=== PATIENT | male | born 1970 | race Hispanic/Latino ===

== ENCOUNTER 2019-01-01 15:46 | Emergency (ER) | payer MEDICARE, OTHER ==
[~2019-01-01] VITALS: Ht 172.7 cm; Wt 93.7 kg
--- OUTSIDE RECORDS SUMMARY | 2019-01-01 15:49 | XMS REPORT ---
Author Author [facility] Address Unknown Phone Unavailable Care Team Providers Care Graphic Manager Name Role Phone Unavailable Unavailable Payers Payer Name Policy Type Policy Number Effective Date Expiration Date Problems This patient has no known problems. Allergies, Adverse Reactions, Alerts Allergy Name Allergy Type Status Severity Reaction(s) Onset Date Inactive Date Treating Clinician Comments No Known Allergies DA Active U 2018-08-04 00:00:00 No Known Allergies DA Active U 2017-11-22 00:00:00 Medications This patient has no known medications. Results Test Description Test Time Test Comments Text Results Atomic Results Result Comments STREPTOCOCCUS PCR SCREEN 2018-12-26 06:21:00 STREPTOCOCCUS DYSGALACTIAE (test code=STREPGC) NEGATIVE FOR G/C NEGATIVE STREPA MOLECULAR (test code=STREPAMOL) NEGATIVE FOR GRP A NEGATIVE BASIC METABOLIC [id number] 20:14:00* Test Item Value Reference Range Comments SODIUM (test code=NA) 137 mmol/L 136-145 POTASSIUM (test code=K) 3.9 mmol/L 3.5-5.1 CHLORIDE (test code=CL) 101 mmol/L 101-109 CARBON DIOXIDE (test code=CO2) 28.1 mmol/L 21-32 ANION GAP (test code=GAP) 12 mmol/L 10-20 GLUCOSE (test code=GLU) 93 mg/dL 74-106 BLOOD UREA NITROGEN (test code=BUN) 10 mg/dL 3-21 GLOMERULAR FILTRATION RATE (test code=GFR) > 60 mL/min >=60 Estimated GFR by using Modified MDRD formula.Chronic kidney disease is defined as either kidney damageor GFR <60 mL/min/1.73 m2 for >3 months. CREATININE (test code=CREAT) 1.08 mg/dL 0.55-1.3 BUN/CREATININE RATIO (test code=BUN/CREA) 9.3 10-20 CALCIUM (test code=CA) 8.7 mg/dL 8.4-10.2 [id number] 20:14:00* Test Item Value Reference Range Comments TROPONIN-I (test code=TROPI) <0.015 ng/mL 0.00-0.056 [id number] 20:10:00* Test Item Value Reference Range Comments D-DIMER (test code=DDIMER) < 100 ng/ml < 600 B-TYPE NATRIURETIC [id number] 20:10:00* Test Item Value Reference Range Comments B-TYPE NATRIURETIC PEPTIDE (test code=BNP) < 5.0 pg/mL 0-100 - XR CHEST 2 [id number] 20:09:00 Name: ALEX RECINOS [facility] : 1970 Age/S:48 /M [address] [facility] Unit#:[id number] [place]: [place] [address] Phys: Sunita Figueroa MD Dis Date: PHONE #: [phone] Status: REG ER FAX #: [phone] Exam Date: 12/25/2018 Reason: COUGH,PLEURITIC PAIN EXAMS: CPT CODE: [id number] XR CHEST 2 V 05071 REASON FOR EXAM: COUGH,PLEURITIC PAIN Exam Order Date: 12/25/2018 7:26 PM Ordering: Sunita Figueroa MD Attending:Sunita Figueroa MD Location: PROCEDURE: - XR CHEST 2 V COMPARISON: FINDINGS: PA and lateral views of the chest show clear lungs without evidence of consolidation. No evidence of effusion. The heart size is within normal limits. Pulmonary vasculatures are unremarkable. The osseous structures are grossly intact. IMPRESSION: No active disease. at 2009 Reported and signed by: Roger Cummings M.D. CC: Technologist: COURTNEY GIBSON RT(R),RDMS,CT Trnscrpt Data: 12/25/2018 (2008) [email or web address] Orig Print D/T: S: 12/25/2018 (2011) PAGE 1 Signed Report BASIC METABOLIC PANEL 2018-12-25 20:05:00* Test Item Value Reference Range Comments SODIUM (test code=NA) 137 mmol/L 136-145 POTASSIUM (test code=K) 3.9 mmol/L 3.5-5.1 CHLORIDE (test code=CL) 101 mmol/L 101-109 CARBON DIOXIDE (test code=CO2) 28.1 mmol/L 21-32 ANION GAP (test code=GAP) 12 mmol/L 10-20 GLUCOSE (test code=GLU) 93 mg/dL 74-106 BLOOD UREA NITROGEN (test code=BUN) 10 mg/dL 3-21 GLOMERULAR FILTRATION RATE (test code=GFR) > 60 mL/min >=60 Estimated GFR by using Modified MDRD formula.Chronic kidney disease is defined as either kidney damageor GFR <60 mL/min/1.73 m2 for >3 months. CREATININE (test code=CREAT) 1.08 mg/dL 0.55-1.3 BUN/CREATININE RATIO (test code=BUN/CREA) 9.3 10-20 CALCIUM (test code=CA) 8.7 mg/dL 8.4-10.2 [id number] 20:05:00* Test Item Value Reference Range Comments TROPONIN-I (test code=TROPI) ng/mL 0-0.045 CBC W/O [id number] 19:59:00* Test Item Value Reference Range Comments WHITE BLOOD CELL (test code=WBC) 12.3 K/mm3 4.5-12.5 RED BLOOD CELL (test code=RBC) 5.63 mill/mm3 4.0-5.8 HEMOGLOBIN (test code=HGB) 15.9 gram/dL 13.0-17.5 HEMATOCRIT (test code=HCT) 48.3 % 42.0-52.0 MEAN CELL VOLUME (test code=MCV) 85.8 fL 80-98 MEAN CELL HGB (test code=MCH) 28.2 picogram 27.0-33.0 MEAN CELL HGB CONCETRATION (test code=MCHC) 32.9 gram/dL 33.0-36.0 RED CELL DISTRIBUTION WIDTH (test code=RDW) 14.0 % 11.6-16.2 RED CELL DISTRIBUTION WIDTH SD (test code=RDW-SD) 44.2 fL 37.0-51.0 PLATELET COUNT (test code=PLT) 330 K/mm3 150-450 MEAN PLATELET VOLUME (test code=MPV) 9.8 fL 6.7-11.0 - DUP VEIN UNI/[id number] 08:20:00 Patient Name: ALEX RECINOS Unit No: [id number] EXAMS: CPT CODE: [id number] DUP VEIN UNI/LTD 74860 RIGHT LOWER EXTREMITY VENOUS DOPPLER DIAGNOSIS: Comparison is made with previous examination of August 26, 2018. On the current examination the common femoral vein may be slightly smaller. A collateral vessel at the level of the distal femoral vein extending into the popliteal vein is present on the current study which was not present previously. There is flow in the posterior tibial vein to the ankle. Slight flow is seen in the peroneal vein. These findings are consistent with chronic deep venous thrombosis which is evolving without evidence for superimposed acute thrombus. COMMENT: Multiple real- time and color Doppler images were obtained. Extensive chronic deep venous thrombosis is noted with minor changes since the prior exam as described above. at 0820 Reported and signed by: Fernandez Briones MD CC: Acosta Stratton MD Technologist: Cristina Thacker RT(R),(CT),RVT Transcribed D/ (0820) [email or web address] [facility] NAME: ALEX RECINOS [address] [facility] PHYS: BRIMA.01 - Acosta Stratton MD : 1970 AGE: 48 SEX: M [place], [place] [address] LOC: Y.RAD PHONE #: [phone] EXAM DATE: 09/30/2018 STATUS: DEP CLI FAX #: [phone] RAD #: D/C DT PAGE 1 Signed Report Patient Name: ALEX RECINOS Unit No: [id number] EXAMS: CPT CODE: [id number] DUP VEIN UNI/LTD 22190 <Continued> Orig Print D/T: S: 10/01/2018 (0823) [facility] NAME: ALEX RECINOS [address] [facility] PHYS: BRIMA. - Acosta Stratton MD : 1970 AGE: 48 SEX: M [place] [address] LOC: Y.RAD PHONE #: [phone] EXAM DATE: 09/30/2018 STATUS: DEP CLI FAX #: [phone] RAD #: D/C DT PAGE 2 Signed Report - DUP VEIN UNI/[id number] 06:59:00 Patient Name: ALEX RECINOS Unit No: [id number] EXAMS: CPT CODE: [id number] DUP VEIN UNI/LTD 30020 RIGHT LOWER EXTREMITY VENOUS DOPPLER DIAGNOSIS: There is chronic appearing nearly occlusive thrombus extending from the common superficial femoral vein contiguously to the peroneal vein in the mid calf. The posterior tibial and profunda femoris veins are patent. The thrombus is echogenic. No collateral vessels are seen. COMMENT: COMP ARISON: No prior exams available. Multiple real-time, color and du plex Doppler images were obtained. Extensive deep venous thrombosi s is present as described. These findings were reported to Dr. Chayito Doty at 5:15 PM. at 0659 Reported and signed by: Fernandez Briones MD CC: Acosta Stratton MD Te chnologist: MATI TOSCANO RDMS, RVT Transcribed D/ (0659) Althea [facility] NAME: ALEX RECINOS [address] [facility] PHYS: BRIMA. - Acosta Stratton MD : 1970 AGE: 47 SEX: Bog[place], [place] [address] LOC: Y.RAD PHONE #: [phone] EXAM DATE: 08/26/2018 STATUS: DEP CLI FAX #: [phone] RAD #: D/C DT PAGE 1 Signed Report Patient Name: ALEX RECINOS Unit No: [id number] EXAMS: CPT CODE: [id number] DUP VEIN UNI/LTD 44894 <Continued> Orig Print D/T: S: 08/27/2018 (0702) [facility] NAME: ALEX RECINOS [address] [facility] PHYS: Acosta Murphy MD : 1970 AGE: 47 SEX: M [place], [place] [address] LOC: YHankRAD PHONE #: [phone] EXAM DATE: 08/26/2018 STATUS: DEP CLI FAX #: [phone] RAD #: D/C DT PAGE 2 Signed Report BASIC METABOLIC [id number] 06:44:00* Test Item Value Reference Range Comments SODIUM (test code=NA) 138 mmol/L 136-145 POTASSIUM (test code=K) 4.5 mmol/L 3.5-5.1 CHLORIDE (test code=CL) 101.0 mmol/L 98-107 CARBON DIOXIDE (test code=CO2) 27.2 mmol/L 21-32 GLUCOSE (test code=GLU) 106 mg/dL 70-110 BLOOD UREA NITROGEN (test code=BUN) 12 mg/dL 7-18 GLOMERULAR FILTRATION RATE (test code=GFR) 84.6 >60 Unit of measure: mL/min/1.73 [id number] Range:Healthy Adults >90 mL/min/1.73 m2 For Chronic Kidney Disease: Stage II Mild Decrease in GFR 60-90 Stage III Moderate Decrease in GFR 30-59 Stage IV Severe Decrease in GFR 15-29 Stage V Kidney Failure <15 CREATININE (test code=CREAT) 0.95 mg/dL 0.55-1.30 CALCIUM (test code=CA) 8.3 mg/dL 8.2-10.1 CBC W/AUTO [id number] 05:44:00* Test Item Value Reference Range Comments WHITE BLOOD CELL (test code=WBC) 13.6 K/mm3 5.7-10.5 RED BLOOD CELL (test code=RBC) 4.60 M/mm3 4.2-5.4 HEMOGLOBIN (test code=HGB) 13.6 g/dL 12-16 HEMATOCRIT (test code=HCT) 39.8 % 37-47 MEAN CELL VOLUME (test code=MCV) 87 fL 80-98 MEAN CELL HGB (test code=MCH) 29.6 pg 27-34 MEAN CELL HGB CONCENTRATION (test code=MCHC) 34.2 g/dL 30.8-34.1 RED CELL DISTRIBUTION WIDTH (test code=RDW) 13.9 % 11-16 PLT (test code=PLT) 300 K/mm3 130-400 MEAN PLATELET VOLUME (test code=MPV) 10.2 fL 8.9-12.1 NEUTROPHIL % (test code=NT%) 67.9 % 45-70 LYMPHOCYTE % (test code=LY%) 17.8 % 20-40 MONOCYTE % (test code=MO%) 11.0 % 3-10 EOSINOPHIL % (test code=EO%) 1.6 % 1-5 BASOPHIL % (test code=BA%) 0.3 % 0.0-1.1 NEUTROPHIL # (test code=NT#) 9.26 K/mm3 2.00-7.50 LYMPHOCYTE # (test code=LY#) 2.42 K/mm3 1.50-4.00 MONOCYTE # (test code=MO#) 1.50 K/mm3 0.2-0.8 EOSINOPHIL # (test code=EO#) 0.22 K/mm3 0.04-0.4 BASOPHIL # (test code=BA#) 0.04 K/mm3 0.02-0.10 MANUAL DIFF REQUIRED (test code=MDIFF) NO MANUAL DIFF NUCLEATED RED BLOOD CELL (test code=NRBC) 0 % 0-0 - CT LOWER EXTRM W/O C [id number] 12:03:00 Patient Name: ALEX RECINOS Unit No: [id number] EXAMS: CPT CODE: [id number] [place] L[place] EXTRM W/[place] [address] [place] SCAN RIGHT KNEE WITH RECONSTRUCTION DIAGNOSIS: 1. There is a comminuted fracture of the tibial plateau. This predominantly involves the lateral tibial plateau. There is no significant depression. Fracture line extends into the medial and lateral tibial spine. Fracture also extends into the proximal tibiofibular joint. There is a comminuted moderately displaced fracture of the fibular head. The medial plateau intact. COMMENT: 0.63 mm axial slices obtained of the right knee with reconstruction. Findings are as described above. at 1203 Reported and signed by: Adam Saavedra MD CC: Acosta Stratton MD Technologist: Garrett Meng,RT(R) CTDI: DLP: Trnscrpt: 07/30/2018 (4211) [id number] [facility] NAME: ALEX RECINOS [address] [facility] PHYS: DOMINIQUE - Acosta Stratton MD : 1970 AGE: 47 SEX: M [place] [address] LOC: Y.RAD PHONE #: [phone] EXAM DATE: 07/29/2018 STATUS: DEP CLI FAX #: [phone] RAD #: D/C DT PAGE 1 Signed Report Patient Name: ALEX RECINOS Unit No: [id number] EXAMS: CPT CODE: [id number] [place] L[place] EXTRM W/[place] [address] <Continued> Orig Print D/T: S: 07/30/2018 (8048) [facility] NAME: ALEX RECINOS [address] [facility] PHYS: HENRIMESHA. - Acosta Stratton MD : 1970 AGE: 47 SEX: M [place] [address] LOC: Y.RAD PHONE #: [phone] EXAM DATE: 07/29/2018 STATUS: DEP CLI FAX #: [phone] RAD #: D/C DT PAGE 2 Signed Report C REACTIVE PROTEIN 2018-07-29 16:46:00* Test Item Value Reference Range Comments C REACTIVE PROTEIN (test code=CRP) 4.9 mg/dL <0.9 ACUTE HEPATITIS [id number] 16:46:00* Test Item Value Reference Range Comments AB HEPATITIS A IGM (test code=HAVMAB) NONREACTIVE NONREACTIVE AG HEPATITIS B SURFACE (test code=HBSAG) NONREACTIVE NONREACTIVE AB HEPATITIS B CORE IGM (test code=HBCMAB) NONREACTIVE NONREACTIVE AB HEPATITIS C (test code=HCVAB) NONREACTIVE NONREACTIVE SIGNAL TO CUTOFF (test code=CUTOFF) 0.17 <0.80 AB HIV 16:46:00* Test Item Value Reference Range Comments AB HIV 1 (test code=HIV1AB) NONREACTIVE NONREACTIVE Done by [employer] 4[employer] Gen HIV Ag/Ab Combo Screen ACUTE HEPATITIS [id number] 16:45:00* Test Item Value Reference Range Comments AB HEPATITIS A IGM (test code=HAVMAB) NONREACTIVE NONREACTIVE AG HEPATITIS B SURFACE (test code=HBSAG) NONREACTIVE NONREACTIVE AB HEPATITIS B CORE IGM (test code=HBCMAB) NONREACTIVE NONREACTIVE AB HEPATITIS C (test code=HCVAB) NONREACTIVE NONREACTIVE SIGNAL TO CUTOFF (test code=CUTOFF) 0.17 <0.80 AB HIV 1 16:45:00* Test Item Value Reference Range Comments AB HIV 1 2 (test code=GPV20KH) NONREACTIVE NONREACTIVE Done by [employer] 4th Gen HIV Ag/Ab Combo Screen C REACTIVE [id number] 15:49:00* Test Item Value Reference Range Comments C REACTIVE PROTEIN (test code=CRP) 4.9 mg/dL <0.9 ACUTE HEPATITIS [id number] 15:49:00* Test Item Value Reference Range Comments AB HEPATITIS A IGM (test code=HAVMAB) NONREACTIVE AG HEPATITIS B SURFACE (test code=HBSAG) NONREACTIVE NONREACTIVE AB HEPATITIS B CORE IGM (test code=HBCMAB) AB HEPATITIS C (test code=HCVAB) NONREACTIVE SIGNAL TO CUTOFF (test code=CUTOFF) AB HIV 15:49:00* Test Item Value Reference Range Comments AB HIV 1 (test code=HIV1AB) NONREACTIVE ACUTE HEPATITIS [id number] 15:48:00* Test Item Value Reference Range Comments AB HEPATITIS A IGM (test code=HAVMAB) NONREACTIVE AG HEPATITIS B SURFACE (test code=HBSAG) NONREACTIVE NONREACTIVE AB HEPATITIS B CORE IGM (test code=HBCMAB) NONREACTIVE AB HEPATITIS C (test code=HCVAB) NONREACTIVE SIGNAL TO CUTOFF (test code=CUTOFF) <0.80 AB HIV 1 15:48:00* Test Item Value Reference Range Comments AB HIV 1 2 (test code=NVS75KT) NONREACTIVE CBC W/AUTO [id number] 14:12:00* Test Item Value Reference Range Comments WHITE BLOOD CELL (test code=WBC) 12.9 K/mm3 5.7-10.5 RED BLOOD CELL (test code=RBC) 5.48 M/mm3 4.2-5.4 HEMOGLOBIN (test code=HGB) 15.8 g/dL 12-16 HEMATOCRIT (test code=HCT) 46.6 % 37-47 MEAN CELL VOLUME (test code=MCV) 85 fL 80-98 MEAN CELL HGB (test code=MCH) 28.8 pg 27-34 MEAN CELL HGB CONCENTRATION (test code=MCHC) 33.9 g/dL 30.8-34.1 RED CELL DISTRIBUTION WIDTH (test code=RDW) 13.9 % 11-16 PLT (test code=PLT) 250 K/mm3 130-400 MEAN PLATELET VOLUME (test code=MPV) 10.6 fL 8.9-12.1 NEUTROPHIL % (test code=NT%) 67.8 % 45-70 LYMPHOCYTE % (test code=LY%) 21.0 % 20-40 MONOCYTE % (test code=MO%) 8.7 % 3-10 EOSINOPHIL % (test code=EO%) 1.7 % 1-5 BASOPHIL % (test code=BA%) 0.5 % 0.0-1.1 NEUTROPHIL # (test code=NT#) 8.76 K/mm3 2.00-7.50 LYMPHOCYTE # (test code=LY#) 2.71 K/mm3 1.50-4.00 MONOCYTE # (test code=MO#) 1.13 K/mm3 0.2-0.8 EOSINOPHIL # (test code=EO#) 0.22 K/mm3 0.04-0.4 BASOPHIL # (test code=BA#) 0.06 K/mm3 0.02-0.10 MANUAL DIFF REQUIRED (test code=MDIFF) NO MANUAL DIFF NUCLEATED RED BLOOD CELL (test code=NRBC) 0 % 0-0 SED [id number] 14:12:00* Test Item Value Reference Range Comments SED RATE (test code=SEDW) 11 mm/hr 0-15 COMPREHENSIVE METABOLIC [id number] 13:36:00* Test Item Value Reference Range Comments SODIUM (test code=NA) 137 mmol/L 136-145 POTASSIUM (test code=K) 3.7 mmol/L 3.5-5.1 CHLORIDE (test code=CL) 99.0 mmol/L 98-107 CARBON DIOXIDE (test code=CO2) 28.2 mmol/L 21-32 GLUCOSE (test code=GLU) 96 mg/dL 70-110 BLOOD UREA NITROGEN (test code=BUN) 15 mg/dL 7-18 GLOMERULAR FILTRATION RATE (test code=GFR) 62.2 >60 Unit of measure: mL/min/1.73 [id number] Range:Healthy Adults >90 mL/min/1.73 m2 For Chronic Kidney Disease: Stage II Mild Decrease in GFR 60-90 Stage III Moderate Decrease in GFR 30-59 Stage IV Severe Decrease in GFR 15-29 Stage V Kidney Failure <15 CREATININE (test code=CREAT) 1.24 mg/dL 0.55-1.30 TOTAL PROTEIN (test code=PROT) 7.4 g/dL 6.4-8.2 ALBUMIN (test code=ALB) 3.6 g/dL 3.4-5.0 GLOBULIN (test code=GLOB) 3.8 g/dL 2.2-4.2 ALBUMIN/GLOBULIN RATIO (test code=A/G) 1.0 0.7-2.0 CALCIUM (test code=CA) 9.0 mg/dL 8.2-10.1 BILIRUBIN TOTAL (test code=BILT) 1.15 mg/dL 0.2-1.00 SGOT/AST (test code=AST) 22.0 U/L 15-37 SGPT/ALT (test code=ALT) 41.0 U/L 12-78 Please note new normal range. ALKALINE PHOSPHATASE TOTAL (test code=ALKP) 87 U/L 46-116 C REACTIVE [id number] 13:25:00* Test Item Value Reference Range Comments C REACTIVE PROTEIN (test code=CRP) 4.9 mg/dL <0.9 ACUTE HEPATITIS [id number] 13:25:00* Test Item Value Reference Range Comments AB HEPATITIS A IGM (test code=HAVMAB) NONREACTIVE AG HEPATITIS B SURFACE (test code=HBSAG) NONREACTIVE AB HEPATITIS B CORE IGM (test code=HBCMAB) AB HEPATITIS C (test code=HCVAB) NONREACTIVE SIGNAL TO CUTOFF (test code=CUTOFF) AB HIV 13:25:00* Test Item Value Reference Range Comments AB HIV 1 (test code=HIV1AB) NONREACTIVE PROTHROMBIN [id number] 13:24:00* Test Item Value Reference Range Comments PROTHROMBIN TIME PATIENT (test code=PTP) 13.4 secs 10.1-12.5 INTERNATIONAL NORMAL RATIO (test code=INR) 1.19 <2.0 RECOMMENDED THERAPEUTIC RANGE FOR ORAL ANTICOAGULANTTREATMENT: CONDITION INRProphylaxis of venous thrombosis in 2.0 - 3.0 high-risk medical or surgical patientsTreatment of venous thrombosis 2.0 - 3.0Prevention of embolism 2.0 - 3.0Prevention of recurrent embolism, or 3.0 - 4.5 patients with mechanical prosthetic intravascular valves IS PATIENT ON ANTICOAGULANTS ? [facility] been notified if Patient is on Heparin D rip? NOTHROMBOPLASTIN TIME [id number] 13:24:00* Test Item Value Reference Range Comments PTT ACTIVATED (test code=APTT) 29.4 secs 24.9-37.0 IS PATIENT ON ANTICOAGULANTS ? [facility] been notified if Patient is on Heparin D rip? NOCBC W/AUTO [id number] 13:09:00* Test Item Value Reference Range Comments WHITE BLOOD CELL (test code=WBC) 12.9 K/mm3 5.7-10.5 RED BLOOD CELL (test code=RBC) 5.48 M/mm3 4.2-5.4 HEMOGLOBIN (test code=HGB) 15.8 g/dL 12-16 HEMATOCRIT (test code=HCT) 46.6 % 37-47 MEAN CELL VOLUME (test code=MCV) 85 fL 80-98 MEAN CELL HGB (test code=MCH) 28.8 pg 27-34 MEAN CELL HGB CONCENTRATION (test code=MCHC) 33.9 g/dL 30.8-34.1 RED CELL DISTRIBUTION WIDTH (test code=RDW) 13.9 % 11-16 PLT (test code=PLT) 250 K/mm3 130-400 MEAN PLATELET VOLUME (test code=MPV) 10.6 fL 8.9-12.1 NEUTROPHIL % (test code=NT%) 67.8 % 45-70 LYMPHOCYTE % (test code=LY%) 21.0 % 20-40 MONOCYTE % (test code=MO%) 8.7 % 3-10 EOSINOPHIL % (test code=EO%) 1.7 % 1-5 BASOPHIL % (test code=BA%) 0.5 % 0.0-1.1 NEUTROPHIL # (test code=NT#) 8.76 K/mm3 2.00-7.50 LYMPHOCYTE # (test code=LY#) 2.71 K/mm3 1.50-4.00 MONOCYTE # (test code=MO#) 1.13 K/mm3 0.2-0.8 EOSINOPHIL # (test code=EO#) 0.22 K/mm3 0.04-0.4 BASOPHIL # (test code=BA#) 0.06 K/mm3 0.02-0.10 MANUAL DIFF REQUIRED (test code=MDIFF) NO MANUAL DIFF NUCLEATED RED BLOOD CELL (test code=NRBC) 0 % 0-0 SED [id number] 13:09:00* Test Item Value Reference Range Comments SED RATE (test code=SEDW) mm/hr 0-15 URINALYSIS [id number] 15:43:00* Test Item Value Reference Range Comments UA COLOR (test code=COLU) LIGHT YELLOW YELLOW UA APPEARANCE (test code=APPU) CLEAR CLEAR UA GLUCOSE DIPSTICK (test code=DGLUU) norm mg/dL NEGATIVE UA BILIRUBIN DIPSTICK (test code=BILU) NEGATIVE mg/dL NEGATIVE UA KETONE DIPSTICK (test code=KETU) neg mg/dL NEGATIVE UA SPECIFIC GRAVITY (test code=SGU) 1.015 1.001-1.035 UA BLOOD DIPSTICK (test code=FRANCES) 10 (Trace) Nhan/uL NEGATIVE UA PH DIPSTICK (test code=HECTOR) 6.0 5.0-8.0 UA PROTEIN DIPSTICK (test code=PROU) 15 (TRACE) mg/dL Neg-15 UA UROBILINIOGEN DIPSTICK (test code=URO) 4 mg/dL (2+) mg/dL 0.0-0.2 UA NITRITE DIPSTICK (test code=CECILY) NEGATIVE NEGATIVE UA LEUKOCYTE ESTERASE DIPSTICK (test code=LEUU) 25 (Trace) uL NEGATIVE UA WBC (test code=WBCU) 0-5 per HPF 0-5 IN SOME URINARY TRACT INFECTIONS THERE MAY NOT BE ENOUGHWBCs IN THE URINE TO TRIGGER AN AUTOMATIC (REFLEX) URINECULTURE. A SEPERATE ORDER FOR URINE CULTURE IS RECOMMENDEDIF THERE IS STRONG SUPPORT FOR A URINARY TRACT INFECTIONCLINICALLY. UA RBC (test code=RBCU) 0-3 per HPF 0-5 UA EPITHELIAL CELLS (test code=EPIU) Rare (0-1/hpf) per HPF Few UA BACTERIA (test code=BACU) TRACE per HPF NONE UA MUCUS (test code=MUCU) MODERATE per LPF NONE-FEW Urine Source? Clean CatchURINALYSIS [id number] 15:38:00* Test Item Value Reference Range Comments UA COLOR (test code=COLU) LIGHT YELLOW YELLOW UA APPEARANCE (test code=APPU) CLEAR CLEAR UA GLUCOSE DIPSTICK (test code=DGLUU) norm mg/dL NEGATIVE UA BILIRUBIN DIPSTICK (test code=BILU) NEGATIVE mg/dL NEGATIVE UA KETONE DIPSTICK (test code=KETU) neg mg/dL NEGATIVE UA SPECIFIC GRAVITY (test code=SGU) 1.015 1.001-1.035 UA BLOOD DIPSTICK (test code=FRANCES) 10 (Trace) Nhan/uL NEGATIVE UA PH DIPSTICK (test code=HECTOR) 6.0 5.0-8.0 UA PROTEIN DIPSTICK (test code=PROU) 15 (TRACE) mg/dL Neg-15 UA UROBILINIOGEN DIPSTICK (test code=URO) 4 mg/dL (2+) mg/dL 0.0-0.2 UA NITRITE DIPSTICK (test code=CECILY) NEGATIVE NEGATIVE UA LEUKOCYTE ESTERASE DIPSTICK (test code=LEUU) 25 (Trace) uL NEGATIVE UA WBC (test code=WBCU) per HPF 0-5 Urine Source? Clean Catch
[2019-01-01] MEDS ORDERED: ALBUTEROL SULF 0.083% NEB SOLN 3 ML NEB NEB STA (15:57)
[2019-01-01] MEDS ORDERED: IPRATROPIUM BROMIDE 0.02% 2.5 ML NEB NEB STA (15:57)
[2019-01-01] MEDS ORDERED: DEXAMETHASONE SOD PHOS 10 MG/1 ML VIAL IM ONE (16:00)
[2019-01-01 16:50] LABS: BASOPHILS % 0.3 % (0.0-1.0); EOSINOPHILS # (AUTO) 0.2 (0.0-0.4); EOSINOPHILS % 1.6 % (0.0-6.0); HEMATOCRIT 47.4 % (38.2-49.6); HEMOGLOBIN 16.4 g/dL (14.0-18.0); LYMPHOCYTES # (AUTO) 1.5 (1.0-3.2); LYMPHOCYTES % 13.2 % (18.0-39.1); MEAN CORPUSCULAR HEMOGLOBIN 29.6 pg (28-32); MEAN CORPUSCULAR HGB CONC 34.6 g/dL (31-35); MEAN CORPUSCULAR VOLUME 85.6 fL (81-99); MONOCYTES # (AUTO) 0.7 (0.2-0.8); MONOCYTES % 5.6 % (4.4-11.3); NEUTROPHILS # (AUTO) 9.2 (2.1-6.9); PLATELET COUNT 304 x10e3/uL (140-360); RED BLOOD COUNT 5.54 x10e6/uL (4.3-5.7); RED CELL DISTRIBUTION WIDTH 14.3 % (11.7-14.4)
[2019-01-01 16:59] LABS: STREPTOCOCCUS GRP A ANTIGEN NEGATIVE (NEGATIVE)
[2019-01-01] MEDS ORDERED: ACETAMINOPHEN/CODEINE ELIX 120-12 MG/5 ML UDC PO ONE (17:00)
--- NOTE | 2019-01-01 17:11 | Diagnostic Imaging Report ---
EXAMINATION: CHEST 2 VIEWS INDICATION: Flulike symptoms, shortness of breath, chest pain COMPARISON: None FINDINGS: LINES/TUBES:None LUNGS:The lungs are well-inflated. No focal consolidation or pulmonary edema. PLEURA:No pleural effusion or pneumothorax. MEDIASTINUM:The cardiomediastinal silhouette appears normal in size and shape. BONES/SOFT TISSUES:No acute osseous injury. ABDOMEN:No free air under the diaphragm. Status post cholecystectomy. IMPRESSION: No focal pneumonia or pulmonary edema. Signed by: Maryam Keys MD on 01/01/2019 5:08 PM
[2019-01-01 17:19] LABS: INFLUENZAE A&B ANTIGEN (RAPID) NEGATIVE (NEGATIVE)
[2019-01-01 17:28] LABS: ALANINE AMINOTRANSFERASE 32 IU/L (0-55); ALBUMIN 3.8 g/dL (3.5-5.0); ALKALINE PHOSPHATASE 108 IU/L (40-150); ANION GAP 11.1 mmol/L (8-16); BLOOD UREA NITROGEN 7 mg/dL (7-26); BUN/CREATININE RATIO 7 (6-25); CALCIUM 9.3 mg/dL (8.4-10.2); CARBON DIOXIDE 24 mmol/L (22-29); CHLORIDE 103 mmol/L (98-107); CREATININE, SERUM 1.03 mg/dL (0.72-1.25); EST GLOMERULAR FILTRATION RATE > 60 ML/MIN (60-); GLUCOSE 107 mg/dL (74-118); POTASSIUM 4.1 mmol/L (3.5-5.1); SODIUM 134 mmol/L (136-145)
[2019-01-01 18:20] VITALS: BP 137/80
[2019-01-01 21:04] LABS: LYMPHOCYTES % (MANUAL) 13 % (19-48); MONOCYTES % (MANUAL) 5 % (3.4-9.0); NEUTROPHILS % (MANUAL) 79 % (40-74); PLATELET ESTIMATE ADEQUATE; PLATELET MORPHOLOGY COMMENT NORMAL; RBC MORPHOLOGY COMMENT NORMAL
== END 2019-01-01 18:22 | disposition home or self-care (01) ==
LOC: ER 15:46
DX: R05 Cough (principal); J20.9 Acute bronchitis, unspecified
CPT/HCPCS: 36415; 71046; 80053; 83518; 84484; 85025; 87070; 87400; 93005; 94640; 99284; J1100

== ENCOUNTER 2019-04-18 18:40 | Emergency (ER) | payer MEDICARE, OTHER ==
[~2019-04-18] VITALS: Ht 172.7 cm; Wt 93.4 kg
[2019-04-18] MEDS ORDERED: CLONIDINE HCL 0.1 MG TAB PO NR (19:15)
[2019-04-18 19:45] VITALS: BP 151/96
== END 2019-04-18 19:46 | disposition home or self-care (01) ==
LOC: ER 18:40
DX: Z76.0 Encounter for issue of repeat prescription (principal); I10 Essential (primary) hypertension; Z86.718 Personal history of other venous thrombosis and embolism
CPT/HCPCS: 99282

== ENCOUNTER → 2020-09-10 | Emergency (ER) | payer MEDICARE, OTHER ==
[~2020-09-10] VITALS: Ht 172.7 cm; Wt 93.4 kg
[~2020-09-10] MED LIST: ACETAMINOPHEN 325 MG TAB ONE; ACETAMINOPHEN 325 MG TAB PO ONE
== END ==
LOC: ER 23:18
DX: U07.1 COVID-19 (principal); R05 Cough
CPT/HCPCS: U0002

== ENCOUNTER 2020-09-25 21:50 | Emergency (ER) | payer MEDICARE, OTHER ==
[~2020-09-25] VITALS: Ht 172.7 cm; Wt 93.4 kg
== END 2020-09-25 23:45 | disposition home or self-care (01) ==
LOC: ER 23:39
DX: R50.9 Fever, unspecified (principal); R05 Cough; U07.1 COVID-19; I10 Essential (primary) hypertension; Z86.718 Personal history of other venous thrombosis and embolism

== ENCOUNTER 2022-04-16 20:12 | Emergency (ER) | payer MEDICARE, OTHER ==
[~2022-04-16] VITALS: Ht 172.7 cm; Wt 93.4 kg
[2022-04-16] MEDS ORDERED: ACETAMINOPHEN 325 MG TAB ONE (20:59)
[2022-04-16 21:02] LABS: BASOPHILS # (AUTO) 0.1 (0.0-0.1); BASOPHILS % 0.4 % (0.0-1.0); EOSINOPHILS # (AUTO) 0.2 (0.0-0.4); EOSINOPHILS % 1.7 % (0.0-6.0); HEMATOCRIT 41.6 % (38.2-49.6); HEMOGLOBIN 14.1 g/dL (14.0-18.0); LYMPHOCYTES # (AUTO) 2.1 (1.0-3.2); LYMPHOCYTES % 16.7 % (18.0-39.1); MEAN CORPUSCULAR HEMOGLOBIN 28.7 pg (28-32); MEAN CORPUSCULAR HGB CONC 33.9 g/dL (31-35); MEAN CORPUSCULAR VOLUME 84.7 fL (81-99); MONOCYTES # (AUTO) 1.1 (0.2-0.8); MONOCYTES % 9.1 % (4.4-11.3); NEUTROPHILS # (AUTO) 8.9 (2.1-6.9); NEUTROPHILS % 71.5 % (38.7-80.0); PLATELET COUNT 500 x10e3/uL (140-360); RED BLOOD COUNT 4.91 x10e6/uL (4.3-5.7); RED CELL DISTRIBUTION WIDTH 13.2 % (11.7-14.4)
[2022-04-16 21:11] LABS: CLARITY,URINE SL CLOUDY (CLEAR); COLOR,URINE YELLOW (YELLOW); LEUKOCYTE ESTERASE ,URINE NEGATIVE (NEGATIVE); NITRITE,URINE NEGATIVE (NEGATIVE)
[2022-04-16 21:12] LABS: KETONES,URINE NEGATIVE (NEGATIVE); PROTEIN,URINE DIPSTICK 1+ (NEGATIVE)
[2022-04-16 21:16] LABS: AMPHETAMINES SCREEN,URINE NEGATIVE (NEGATIVE); BENZODIAZEPINES SCREEN,URINE NEGATIVE (NEGATIVE); PHENCYCLIDINE SCREEN,URINE NEGATIVE (NEGATIVE)
[2022-04-16] MEDS ORDERED: ACETAMINOPHEN 325 MG TAB PO STA (21:17)
[2022-04-16 21:19] LABS: MUCUS,URINE MODERATE (RARE); RBC,URINE 0-5 /HPF (0-5); WBC,URINE (MAN) 0-5 /HPF (0-5)
[2022-04-16 21:21] LABS: ALBUMIN 3.2 g/dL (3.5-5.0); ALBUMIN/GLOBULIN RATIO 0.7 (0.8-2.0); ANION GAP 14.9 mmol/L (8-16); CALCIUM 8.8 mg/dL (8.4-10.2); CREATININE, SERUM 1.07 mg/dL (0.72-1.25); POTASSIUM 3.9 mmol/L (3.5-5.1)
[2022-04-16 21:27] LABS: CREATINE KINASE MB 0.6 ng/mL (0-5.0)
[2022-04-17] MEDS ORDERED: IOPAMIDOL 370 MG/ML 100 ML INFUS..BTL INJ ONE (00:14)
[2022-04-17] MEDS ORDERED: AUGMENTIN 500-1 EACH PO (01:07)
[2022-04-17 01:14] VITALS: BP 115/77
== END 2022-04-17 01:15 | disposition home or self-care (01) ==
LOC: ER 20:18
DX: L03.818 Cellulitis of other sites (principal); R60.9 Edema, unspecified; I10 Essential (primary) hypertension; Z20.822 Contact with and (suspected) exposure to COVID-19; Z86.718 Personal history of other venous thrombosis and embolism
CPT/HCPCS: 36415; 71045; 71260; 80053; 80307; 81001; 82550; 82553; 83605; 83690; 83880; 84484; 85025; 85379; 87040; 93005; 99284; J2543; Q9967; U0002

== ENCOUNTER 2023-03-16 17:17 | Emergency (ER) | payer MEDICARE, OTHER ==
[~2023-03-16] VITALS: Ht 172.7 cm; Wt 93.4 kg
[~2023-03-16 17:17] MED LIST changes: -ACETAMINOPHEN 325 MG TAB ONE; -ACETAMINOPHEN 325 MG TAB PO ONE; +AUGMENTIN 500-1 EACH PO
[2023-03-16 18:13] LABS: BASOPHILS # (AUTO) 0.1 (0.0-0.1); BASOPHILS % 0.4 % (0.0-1.0); EOSINOPHILS # (AUTO) 0.4 (0.0-0.4); EOSINOPHILS % 3.1 % (0.0-6.0); HEMATOCRIT 50.4 % (38.2-49.6); HEMOGLOBIN 16.3 g/dL (14.0-18.0); LYMPHOCYTES % 16.6 % (18.0-39.1); MEAN CORPUSCULAR HEMOGLOBIN 29.1 pg (28-32); MEAN CORPUSCULAR HGB CONC 32.3 g/dL (31-35); MONOCYTES # (AUTO) 1.1 (0.2-0.8); MONOCYTES % 9.3 % (4.4-11.3); NEUTROPHILS # (AUTO) 8.3 (2.1-6.9); NEUTROPHILS % 70.1 % (38.7-80.0); PLATELET COUNT 220 x10e3/uL (140-360); RED CELL DISTRIBUTION WIDTH 13.6 % (11.7-14.4); WHITE BLOOD COUNT 11.77 x10e3/uL (4.8-10.8)
[2023-03-16 18:31] LABS: ALBUMIN 3.7 g/dL (3.5-5.0); ALBUMIN/GLOBULIN RATIO 0.8 (0.8-2.0); ANION GAP 13.9 mmol/L (8-16); CALCIUM 9.4 mg/dL (8.4-10.2); CREATININE, SERUM 1.17 mg/dL (0.72-1.25); POTASSIUM 3.9 mmol/L (3.5-5.1); TOTAL PROTEIN 8.1 g/dL (6.5-8.1)
[2023-03-16 18:37] LABS: TROPONIN I 0.003 ng/mL (0-0.300)
[2023-03-16] MEDS ORDERED: KETOROLAC TROMETHAMINE 30 MG/ML VIAL IV STA (18:55)
[2023-03-16] MEDS ORDERED: MEDROL4 M2 PO (19:19)
[2023-03-16] MEDS ORDERED: DOXYCYCLINE HY100 MG PO (19:19)
[2023-03-16 19:32] VITALS: BP 139/99; PULSE 78; O2SAT 98
== END 2023-03-16 19:34 | disposition home or self-care (01) ==
LOC: ER 17:27
DX: R05.9 Cough, unspecified (principal); J18.9 Pneumonia, unspecified organism; R07.89 Other chest pain; M25.511 Pain in right shoulder; Z11.52 Encounter for screening for COVID-19; R94.31 Abnormal electrocardiogram [ECG] [EKG]
CPT/HCPCS: 36415; 71045; 73030; 80053; 84484; 85025; 87400; 93005; 94760; 99284; J1885; U0002